=== PATIENT | female | born 1990 | race Caucasian/White ===

== ENCOUNTER 2024-11-21 07:55 | Day surgery (SDC) | payer MEDICAID, SELFPAY ==
[2024-11-20 13:21] VITALS: BMI 29.4
[2024-11-20 14:30] LABS: Beta HCG,Quantitative < 1 mIU/mL (<5.0)
[2024-11-20 15:10] LABS: Hepatitis A Antibody IgM Non Reactive (Non React); Hepatitis B Core Antibody IgM Non Reactive (Non React); Hepatitis B Surface Antigen Non Reactive (Non React); Hepatitis C Antibody Non Reactive (Non React)
[2024-11-20 15:40] LABS: HIV (1&2) Antibody Rapid Non-Reactive
[2024-11-20 16:31] LABS: Basophils # (Auto) 0.1 Thou/mm3 (0.0-0.2); Basophils % (Auto) 1 % (0-2.5); Eosinophils # (Auto) 0.4 Thou/mm3 (0.0-0.5); Eosinophils % (Auto) 6 % (0-10); Hematocrit 37.6 % (36.0-46.0); Hemoglobin 12.8 g/dL (12.0-16.0); Immature Granulocytes % (Auto) 1 % (0-0); Immature Granulocytes Auto 0.04 Thou/mm3 (0.00-0.00); Lymphocytes # (Auto) 2.1 Thou/mm3 (1.0-4.8); Lymphocytes % (Auto) 27 % (10-50); Mean Corpuscular Hemoglobin 31.6 pg (25.0-35.0); Mean Corpuscular Volume 93 fL (80-100); Monocytes # (Auto) 0.5 Thou/mm3 (0.0-0.8); Monocytes % (Auto) 6 % (0-12); Neutrophils # (Auto) 4.6 Thou/mm3 (1.8-7.7); Neutrophils % (Auto) 60 % (37-80); Nucleated Red Blood Cell % 0 /100 WBC (0); Platelet Count 288 Thou/mm3 (140-440); RDW Standard Deviation 42.5 fL (36.4-46.3); Red Blood Count 4.05 Miln/mm3 (4.00-5.20); White Blood Count 7.7 Thou/mm3 (3.6-11.0)
[2024-11-21] VITALS (8 sets, daily range): BP systolic 123–139; BP diastolic 71–85; PULSE 73–90; RESP 16–25; TEMP 36.6–37; O2SAT 97–100; BMI 29.2
--- NOTE | 2024-11-21 09:58 | PD.GYNHP ---
Documentation for date of: 11/21/24 HOSPITAL EDUCATION COORDINATOR - HPI History of Present Illness History of present illness: Ms. GUARDADO is a 33 year old female para 1 admitted for cervical conization. Patient has a background Pap of HSIL. Patient had a colposcopy done in the office which resulted in moderate cervical dysplasia MARCOS-2. Patient was counseled about the procedure of cervical conization and the risk of margins being positive and she might requiring hysterectomy in that case or a repeat conization. Patient understands the risk of bleeding, infection, chances of margins being positive. Denies any other medical or surgical history Meds Home Medications and Allergies Home Medications ?Medication ?Instructions ?Recorded ?Confirmed ?Type acetaminophen 500 mg tablet 500 mg PO Q6H PRN pain 11/20/24 11/21/24 History (Acetaminophen Extra Strength) Allergies Allergy/AdvReac Type Severity Reaction Status Date / Time No Known Allergies Allergy Verified 11/21/24 08:20 Exam - HOSPITAL EDUCATION COORDINATOR Vital Signs Temp Pulse Resp BP Pulse Ox 97.8 F 79 18 127/84 98 11/21/24 08:23 11/21/24 08:23 11/21/24 08:23 11/21/24 08:23 11/21/24 08:23 Constitutional Constitutional: no acute distress Routine HEENT Exam Head: Present normocephalic and atraumatic Eye: Present EOMI and PERRL ENT: Present mucous membranes moist Routine Neck Exam Neck: Present supple and trachea midline Routine Respiratory Exam Respiratory: Present chest non-tender, lungs clear, normal breath sounds and no resp distress Routine Cardiovascular Exam Cardiovascular: Present RRR Routine Abdominal Exam Abdominal: Present soft and normoactive bowel sounds Routine Extremities Exam Extremities: Present full ROM Routine Skin Exam Skin: Present intact and dry Routine Neurological Exam Neurological: Present alert, oriented X3 and CN II-XII intact Routine Psychiatric Exam Psychiatric: Present normal affect and normal thought process HOSPITAL EDUCATION COORDINATOR - Results Labs 11/20/24 13:57 Labs: Short CBC 11/20/24 Range/Units 13:57 WBC 7.7 (3.6-11.0) Thou/mm3 Hgb 12.8 (12.0-16.0) g/dL Hct 37.6 (36.0-46.0) % Plt Count 288 (140-440) Thou/mm3 Impressions Impression: 33-year-old para 1 admitted for cervical conization Pap HSIL colposcopy MARCOS-2 Assessment and Plan Additional Assessment & Plan Additional Plan: Admitted for cervical cone Quality Measures Quality Measures VTE prophylaxis
--- NOTE | 2024-11-21 12:16 | SUR.PHASEI ---
1154: Pt received for recovery. Report from Dot DALEY and WALLCOVERING TEXTURER. Pt groggy. Easily aroused with eye opening then drifts back to sleep. Resp even, unlabored. VS stable. Scant amount of vaginal bleeding. Pt is on her menses. Denies pain. Ofirmev infusing. Denies pain. 1118: Pt more alert. VS stable. Resp even, unlabored. No change in vaginal discharge. Denies pain.
--- NOTE | 2024-11-21 14:24 | SUR.PHASEII ---
1235: Pt more awake, alert. VS stable. No increased vaginal bleeding. Denies pain. Sitting up tolerating po fluids with no difficulty swallowing and no n/v. 1305: Pt fully awake, oriented x3. VS stable. No change in vaginal bleeding. Denies pain. Pt dressed and assisted to transport chair. Ambulation steady. Pt and stated understanding of discharge instructions. Pt also instructed to apple picker her prescription at [facility]. Pt discharged from [facility] in stable condition.
--- NOTE | 2024-11-28 08:42 | PD.GYNPROC ---
Operative Note - [facility] Procedure Date of procedure: 11/21/24 Procedure Performed: Cervical conization Indication: Pap HSIL Colposcopy MARCOS-2 Pre-Op diagnosis: Same Post-Op diagnosis: Same Anesthesia type: General Procedure description: The patient was taken back to the operating room and prepped and draped in a sterile fashion. General anesthesia was deemed to be adequate. A time-out was performed to confirm correct patient and correct procedure. The patient was then positioned on the operating room in the dorsolithotomy position. A bimanual examination was performed and the uterus was noted to be small, anteverted in size yet mobile. The cervix was visualized with the aid of a [place]. We performed endocervical currettage. With maren see. Local anesthesia with dilute Lidocaine with epinephrine was injected circumferentially around the cervix to aid in hemostasis. Utilizing 0 Vicryl we suture ligated the cervix at 3 and 9 o'clock positions to aid in decreased bleeding to ligate the cervical branch of the uterine arteries. Once the cervix was visualized to be pale, with a scalpel were able to circumferentially remove a cone specimen of the cervix, again prior to excising that cone, we placed a Hegar dilator to protect our margins. Once the cone specimen was removed. Minimal amount of bleeding was noted. We controlled that with ball electrocautery and munsol solution. We then deemed the procedure complete. Hemostasis was obtained. We removed the speculum as well as the Gloria. Sponge, lap and instrument counts were correct x2. The patient was transferred to the recovery room in stable condition Estimated blood loss (ml): 10 Surgical staff Operation Date: 11/21/24 10:00 Case Staff EMERGENCY MEDICINE SPECIALIST: Sepideh Rutherford Diagnosis Problem List Completed Was Problem List Reviewed/Reconciled?: Yes
== END 2024-11-21 13:05 | disposition home or self-care (01) ==
PROVIDERS: PCP Family Medicine; Referring Provider Student in an Organized Health Care Education/Training Program; Visit Provider Student in an Organized Health Care Education/Training Program
PROC: 0UBC7ZZ Excision of Cervix, Via Natural or Artificial Opening (ICD-10-PCS; CPT 57520; principal; 2024-11-21 10:00)
DX: N87.1 Moderate cervical dysplasia (principal)
CPT/HCPCS: 57520; 36415; 80074; 84702; 85025; 86703; 86850; 86900; 86901; A4217; A4649; J0131; J0690; J1100; J1885; J2250; J2405; J2598; J2704; J3010; J3490